=== PATIENT | female | born 1960 | race Two or more races ===

== ENCOUNTER → 2016-08-22 | Outpatient (CLI) | payer OTHER | END | disposition home or self-care (01) | LOC: HKI 09:10 | PROVIDERS: ATTEND Orthopaedic Surgery | DX: M25.562 Pain in left knee (principal); M17.12 Unilateral primary osteoarthritis, left knee | CPT/HCPCS: G0463 ==

== ENCOUNTER → 2016-10-14 | Outpatient (CLI) | payer OTHER ==
--- NOTE | 2016-10-28 08:18 | HKNOTE ---
DATE OF SERVICE: 10/14/2016 INTERVAL HISTORY: The patient presented today for a follow-up evaluation on her left knee. She was noted to have advanced osteoarthritis of the left knee, and she is here today for her Monovisc injection, which is authorized by her insurance. She denies any fevers or chills. She is having continued pain with ambulation. She is taking [id number] anti-inflammatory medication with only mild relief of her symptoms. She comes in today for a follow-up evaluation and Monovisc injection. PHYSICAL EXAMINATION: She is alert and oriented x4, in no acute distress. She walks with a slight antalgic gait. Range of motion is 0-100 at 20 degrees. She does have 2+ patellar femoral crepitus. She does have a varus deformity of the left knee as well. There is diffuse tenderness to palpation. Compartments are soft. Homans' sign is negative. She is neurovascularly intact distally. ASSESSMENT: Left knee osteoarthritis. PLAN: Under sterile conditions, the patient underwent the Monovisc injection to her left knee today. Post injection instructions were provided to the patient. I advised her to modify her activity, take anti-inflammatory pain medication, and apply ice to the left knee. If she has any fevers, chills, worsening of her symptoms, she will call the office. Otherwise, we will see her back as needed. She does understand at some point that she may need to elect to proceed with a left total knee arthroplasty. PROCEDURE NOTE: The procedure was fully explained to the patient, and informed consent was obtained prior to the start of the procedure. The area was prepped and draped in sterile fashion. Betadine was used to anesthetize the superolateral aspect of the left knee, and 4 mL of Monovisc was injected intra- articularly. The patient tolerated the procedure well. A sterile dressing was applied, and all questions and concerns were addressed at the time of the procedure. Dictated by Timothy Mckeon PA-C Dictated By: Matt Lopez MD /[email or web address] /Document#: [id number]
== END | disposition home or self-care (01) ==
LOC: HKI 08:59
PROVIDERS: ATTEND Orthopaedic Surgery
DX: M17.12 Unilateral primary osteoarthritis, left knee (principal)
CPT/HCPCS: 20610; J7327